=== PATIENT | female | born 1995 | race African-American/Black ===

== ENCOUNTER 2017-03-12 02:02 | Emergency (ER) | payer SELFPAY ==
[~2017-03-12 02:02] MED LIST: MOBI15TA PO; TRAM50 PO; ZOFR4TAB3 SL
[2017-03-12 02:05] VITALS: BP 132/75; PULSE 93; RESP 16; TEMP 98.8; O2SAT 99
[2017-03-12] MEDS ORDERED: METF500T PO (02:07)
--- NOTE | 2017-03-12 03:15 | PD ---
HPI Chief Complaint: Chest Pain Time Seen by Provider: 03:09 Travel History International Travel<30 days: No Contact w/Intl Traveler<30days: No Traveled to known affect area: No History of Present Illness HPI 22-year-old female presents to the emergency department for complaint of 45 minutes of chest pain just prior to arrival to the emergency department. Patient states symptoms began at rest. Patient states that she's never had this before. Patient states pain is sharp and stabbing. Patient did note the chest wall was tender to palpation. No associated shortness of breath sweats nausea vomiting referred neck jaw back shoulder arm or abdominal pain. Patient denies . Patient does take the depot shot. Patient does not smoke cigarettes. Patient does not describe the pain is pleuritic in nature. Currently pain is improved. Patient states she only attempted to drink water to resolve her symptoms and is not providing relief. Patient did not take any ibuprofen or aspirin or acetaminophen for symptom relief. She denies any recent fever illness injury or rash. [facility] Past Medical History Narrative Medical Type 2 diabetes metformin use; no tobacco use; nursing notes reviewed Diabetes: Yes Patient Takes Glucophage: Yes Diminished Hearing: No ?: Not Past Surgical History Surgical History: No Previous Surgery Social History Alcohol Use: No Tobacco Use: No Substance Use: No Allergies-Medications (Allergen,Severity, Reaction): Coded Allergies: No Known Allergies (Unverified Adverse Reaction, Unknown, 03/12/17) Reported Meds & Prescriptions Reported Meds & Active Scripts Active Reported Metformin (Metformin HCl) 500 Mg Tab 500 Mg PO DAILY With a meal Review of Systems Except as stated in HPI: all other systems reviewed are Neg General / Constitutional: No: Fever, Chills HENT: No: Congestion Cardiovascular: Positive: Chest Pain or Discomfort, No: Palpitations, Irregular Rhythm, Tachycardia, Diaphoresis Respiratory: No: Cough, Shortness of Breath Gastrointestinal: No: Nausea, Vomiting, Abdominal Pain Genitourinary: No: Dysuria, Flank Pain Musculoskeletal: No: Myalgias, Arthralgias Skin: No Rash Neurologic: No: Weakness Hematologic/Lymphatic: No: Lymph Node Enlargement Physical Exam Narrative GENERAL: Well-developed well-nourished female in no acute distress no respiratory distress SKIN: Warm and dry. HEAD: Normocephalic. EYES: No scleral icterus. No injection or drainage. NECK: Supple, trachea midline. No JVD or lymphadenopathy. CARDIOVASCULAR: Regular rate and rhythm without murmurs, gallops, or rubs. RESPIRATORY: Breath sounds equal bilaterally. No accessory muscle use. GASTROINTESTINAL: Abdomen soft, non-tender, nondistended. MUSCULOSKELETAL: No cyanosis, or edema. BACK: Nontender without obvious deformity. No CVA tenderness. Data Data Last Documented VS Vital Signs Date Time Temp Pulse Resp B/P (MAP) Pulse Ox O2 Delivery O2 Flow Rate FiO2 03/12/17 03:54 03/12/17 02:05 98.8 93 16 99 Room Air Orders Orders Chest, Single Ap (03/12/17 ) Electrocardiogram (03/12/17 ) Ed Urine Pregnancytest Poc (03/12/17 03:09) Ibuprofen (Motrin) (03/12/17 03:30) Ed Discharge Order (03/12/17 03:53) [facility] Medical Decision Making Medical Screen Exam Complete: Yes Emergency Medical Condition: Yes Medical Record Reviewed: Yes Interpretation(s) EKG normal sinus rhythm rate [address] elevation or injury pattern change noted CXR FINDINGS: A single view of the chest demonstrates the lungs to be symmetrically aerated without evidence of mass, infiltrate or effusion. The cardiomediastinal contours are unremarkable. Osseous structures are intact. CONCLUSION: Normal examination. Scar Eagle MD on March 12, 2017 at 3:37 Board Certified Radiologist. This report was verified electronically. Differential Diagnosis Chest pain atypical chest pain chest wall pain pleurisy costochondritis musculoskeletal pain shingles esophagitis also to consider PE Narrative Course Presently pain has improved administered ibuprofen weight-based chest x-ray and EKG performed [id number] hCG ordered Chest x-ray no lobar infiltrate no pneumothorax EKG sinus rhythm no acute ST elevation or injury pattern Patient stable for outpatient management Diagnosis Primary Impression: Anterior chest wall pain Referrals: Primary Care Physician call for appointment Patient Instructions: General Instructions Additional Instructions: May use acetaminophen or ibuprofen per package directions for discomfort Increase fluid hydration Continue current medications as presently prescribed Follow-up with her primary care provider Return to the emergency department for any concerns or change in condition Med/Other Pt SpecificInfo: No Change to Meds Disposition: 01 DISCHARGE HOME Condition: Stable Dalila Naidu MD Mar 12, 2017 03:14
[2017-03-12] MEDS ORDERED: IBUPROFEN 400 MG TAB PO ONE (03:30)
--- NOTE | 2017-03-12 03:38 | RADRPT ---
EXAM DATE/TIME: 03/12/2017 03:28 [facility] COMPARISON: No previous studies available for comparison. INDICATIONS : Chest pain. MEDICAL HISTORY : Diabetes mellitus type II. SURGICAL HISTORY : None. ENCOUNTER: Initial ACUITY: 1 day PAIN SCORE: 8/10 LOCATION: Bilateral chest FINDINGS: A single view of the chest demonstrates the lungs to be symmetrically aerated without evidence of mas s, infiltrate or effusion. The cardiomediastinal contours are unremarkable. Osseous structures are intact. CONCLUSION: Normal examination. Scar Eagle MD on March 12, 2017 at 3:37 Board Certified Radiologist. This report was verified electronically.
--- NOTE | 2017-03-12 12:43 | EKG ---
Date Performed: 03/12/2017 Time Performed: 03:50:15 PTAGE: 22 years EKG: Sinus rhythm WITH SINUS ARRHYTHMIA POSSIBLE RIGHT VENTRICULAR CONDUCTION DELAY NONSPECIFIC T-WAVE ABNORMALITY BOR DERLINE ECG No prior tracing DOCTOR: Anthony Contreras Interpretating Date/Time 03/12/2017 12:41:51
== END 2017-03-12 03:57 | disposition home or self-care (01) ==
LOC: NEPC 02:02
DX: R07.89 Other chest pain (principal); I49.8 Other specified cardiac arrhythmias; R94.31 Abnormal electrocardiogram [ECG] [EKG]; E11.9 Type 2 diabetes mellitus without complications; Z79.899 Other long term (current) drug therapy
CPT/HCPCS: 71010; 84703; 93005; 99285